=== PATIENT | female | born 1960 | race Caucasian/White ===

== ENCOUNTER 2019-01-20 07:20 | Emergency (ER) | payer OTHER ==
--- NOTE | 2019-01-20 07:44 | EDM.PDOC ---
ED HPI GENERAL MEDICAL PROBLEM - General Chief Complaint: ENT Problem Stated Complaint: sore throat, chills Time Seen by Provider: 01/20/19 07:40 Source of Information: Reports: Patient, Old Records ([facility] chart/EMR), Other ([place] EMR) History Limitations: Reports: No Limitations - History of Present Illness INITIAL COMMENTS - FREE TEXT/NARRATIVE: She drove herself to the emergency room via private automobile for evaluation of 02/27 sharp, burning sore throat, which started about 3 days ago. She has had a previous history of recurrent tonsillitis with status post tonsillectomy as below. No known exposure to infection, including strep throat, mono, etc. Her seasonal allergies have also been under somewhat poor control recently secondary to current harvesting. Possible fever and chills yesterday with Tylenol taken at that time, however temperature not measured. No antipyretic medication during the last 6 hours. No recent history of abdominal pain, heartburn, nausea, diarrhea, melena, gross hematochezia, or any food intolerance , including fatty foods, etc.. She denies any gross hematuria, colic, or other UTI symptoms. The patient also denies any recent cough, wheezing, dyspnea, etc.. She has been gargling with saltwater. Onset: Gradual Onset Date: 01/17/19 Duration: Constant, Getting Worse Location: Reports: Other (Sore throat as above). Denies: Head, Face, Neck, Chest, Abdomen, Upper Extremity, Left, Upper Extremity, Right, Radiates to Quality: Reports: Burning, Same as Previous Episode, Sharp Severity: Severe Improves with: Reports: None Worsens with: Reports: None Context: Reports: Other (As above). Denies: Sick Contact, Trauma Associated Symptoms: Reports: Fever/Chills. Denies: Confusion, Chest Pain, Cough, Malaise, Nausea/Vomiting, Rash, Shortness of Breath, Weakness Treatments BLOCK INSPECTOR: Reports: Acetaminophen Throat Pain Score (Numeric/FACES): 10 - Related Data Allergies Allergy/AdvReac Type Severity Reaction Status Date / Time azithromycin AdvReac Stomach Verified 01/20/19 07:20 Upset Home Meds: Home Meds Fish Oil/[place]-3 Fatty Acids [Fish Oil 1,000 MG] 1 each PO DAILY 01/20/19 [ History] L.acidoph,Paracasei, B.lactis [Probiotic] 1 each PO DAILY 01/20/19 [History] Vit A/Vit C/Vit E/Zinc/Copper [Preservision] 1 each PO DAILY 01/20/19 [History] Past Medical History HEENT History: Reports: Allergic Rhinitis, Cataract, Impaired Vision, Otitis Media, Other (See Below). Denies: Glaucoma, Hard of Hearing, Macular Degeneration, Retinal Detachment Other HEENT History: Getting cataracts. Patient wears reading glasses. Allergic rhinitis especially to pollens. Recurrent titis media requiring surgery as below. Cardiovascular History: Reports: Other (See Below). Denies: Afib, Aneurysm, Arrhythmia, Blood Clots/VTE/DVT, CAD, Heart Murmur, High Cholesterol, Hypertension, [place], Syncope Other Cardiovascular History: Occasionally elevated blood pressures. Respiratory History: Reports: Other (See Below). Denies: Asthma, Bronchitis, Recurrent, COPD, Intubation, Previous, PE, Pneumothorax, Sleep Apnea, TB Other Respiratory History: Multiple benign pulmonary granulomas/nodules by CT scan of the chest initially diagnosed in April 2016 as below. Gastrointestinal History: Reports: GERD. Denies: Celiac Disease, Cholelithiasis , Colon Polyp, Diverticulosis, GI Bleed, Hepatitis, Hiatal Hernia, Inflammatory Bowel Disease, Irritable Bowel Syndrome, Jaundice, Pancreatitis, PUD Genitourinary History: Reports: Renal Calculus, Other (See Below). Denies: Acute Renal Failure, Chronic Renal Insuffiency, Retention, Urinary, STD, Urinary Incontinence, UTI, Recurrent Other Genitourinary History: Possible right-sided urolithiasis on 02/14/13 with spontaneous passage. FAMILY ENGAGEMENT SPECIALIST History: Reports: . Denies: Dysfunctional Uterine Bleeding, Endometriosis, Fibroids, Spontaneous LMP (Approximate): Other (See Below) Other FAMILY ENGAGEMENT SPECIALIST History: Positive age 49. Previous left ovarian cyst on 02/17/13. Musculoskeletal History: Reports: None. Denies: Amputation, Arthritis, Back Pain, Chronic, Gout, Neck Pain, Chronic, Osteoarthritis, RA, SLE Neurological History: Reports: Headaches, Chronic, Migraines, Other (See Below) . Denies: Cerebral Aneurysms, Concussion, Head Trauma, MS, Neuropathy, Peripheral, Parkinson's, Seizure, TIA, Vertigo Other Neuro History: Previous migraine headaches with menses. Psychiatric History: Reports: None. Denies: Abuse, Victim of, ADD, ADHD, Addiction, Anxiety, Depression, Psych Hospitalization(s), PTSD, Suicide Attempt , Suicidal Ideation Endocrine/Metabolic History: Reports: None. Denies: Diabetes, Gestational, Diabetes, Type I, Diabetes, Type II, Diabetes Mellitus, Type 3c, Hypothyroidism , IDDM Hematologic History: Reports: None. Denies: Anemia, Blood Transfusion(s), Iron Deficiency Immunologic History: Reports: None. Denies: AIDS, HIV, SLE Oncologic (Cancer) History: Reports: Basal Cell Carcinoma, Squamous Cell Carcinoma, Other (See Below). Denies: Cervix, Colon, Hodgkin's Lymphoma, Leukemia, Malignant Melanoma, Non-Hodgkin's Lymphoma, Ovarian, Uterine Other Oncologic History: Squamous cell carcinoma and multiple basal cell carcinomas with excisions as below. Dermatologic History: Reports: Other (See Below). Denies: Eczema, Psoriasis Other Dermatologic History: Dry skin - Infectious Disease History Infectious Disease History: Reports: C-Difficile, Chicken Pox, Mumps. Denies: Measles, Meningitis, Mononucleosis, MRSA, Pertussis (Whooping Cough), Rheumatic Fever, Rubella, Scarlet Fever, Shingles, TB, VRE - Past Surgical History Head Surgeries/Procedures: Reports: None HEENT Surgical History: Reports: Adenoidectomy, Myringotomy w Tube(s), Tonsillectomy, Other (See Below). Denies: Cataract Surgery, Eye Surgery, Laser Surgery, LASIK, Naso-Sinus Surgery, Oral Surgery Other HEENT Surgeries/Procedures: Tonsillectomy and adenoidectomy at age 6. Bilateral PE tubes at age as a child. Cardiovascular Surgical History: Reports: None. Denies: Varicose, Vascular Surgery Respiratory Surgical History: Reports: None. Denies: Thoracentesis GI Surgical History: Reports: Colonoscopy, EGD, Other (See Below). Denies: Appendectomy, Cholecystectomy, Hernia, Abdominal, Hernia, Inguinal, Hernia Repair/Other, Polypectomy Other GI Surgeries/Procedures: Normal EGD and colonoscopy on 10/13/10. Female Surgical History: Reports: Breast Biopsy, Other (See Below). Denies: Cystoscopy, D&C, Hysterectomy, Tubal Ligation Other Female Surgeries/Procedures: Right breast biopsy for benign disease in her 30s. Endocrine Surgical History: Reports: None. Denies: Thyroid Biopsy Neurological Surgical History: Reports: None. Denies: C-Spine, Discectomy, Laminectomy, Lumbar Spine, Sacral Spine, Spinal Fusion, Thoracic Spine, Vertebroplasty Musculoskeletal Surgical History: Reports: None. Denies: Arthroscopic Procedure , Carpal Tunnel, Ganglion Cyst, Joint Replacement, ORIF, Shoulder Surgery Oncologic Surgical History: Reports: Other (See Below) Other Oncologic Surgeries/Procedures: Skin excisions as below Dermatological Surgical History: Reports: Skin Biopsy, Other (See Below) Other Dermatological Surgeries/Procedures: Skin excisions for basal cell carcinoma of the right lateral nose with additional skin flap on 2014, left forehead/ Mohs procedure on 2015, and left sternal region in 2013. Excision of squamous cell carcinoma from the right breast on 2014. Additional multiple skin excisions for benign disease usually on a every 6 month basis. - Past Imaging History Past Imaging History: Reports: CAT Scan (CT heart scan/calcium score on . CT of the chest on 05/03/16 and 09/14/16.), Mammogram (Last mammogram on 03/28), Ultrasound (Abdominal and pelvic ultrasound on 02/17/13.) Social & Family History - Family History Cardiac: Reports: Bypass, CAD, High Cholesterol, [place], Stent, Other (See Below). Denies: Afib, Arrhythmia, Blood Clots/VTE/DVT, Hypertension, Pacemaker, PVD/COD , Syncope Other Cardiac Family History: Father history of PTCA/stent 1 and WY in his 60s with subsequent CABG and stents in his 70s. Paternal uncles 3 with history of W[place] in their 70s. Father with hyperlipidemia. Neurological: Reports: CVA, Migraines, Other (See Below). Denies: Alzheimers Disease, Cerebral Aneurysms, Dementia, MS, Parkinson's, Seizure, TIA Other Neurological Family History: Paternal grandmother with CVA in her 70s. Mother and daughter with migraine headaches. - Tobacco Use Smoking Status *Q: Former Smoker Tobacco Use Within Last Twelve Months: No Years of Tobacco use: 8 Packs/Tins Daily: 0.1 Packs/Tins Daily Comment: Usually on weekends between ages 16 and 24. Used Tobacco, but Quit: Yes Smoking Cessation Information Provided To Patient: No Second Hand Smoke Exposure: No Second Hand Smoke Education Provided: No - Caffeine Use Caffeine Use: Reports: None. Denies: Coffee, Energy Drinks, Soda, Tea - Alcohol Use Alcohol Use History: Yes Days Per Week of Alcohol Use: 0 Number of Drinks Per Day: 1 Number of Drinks Per Day Comment: Usually very occasional beer. DWI at Age 26 with no history of alcohol abuse, treatment, etc. Total Drinks Per Week: 0 Alcohol Use in Last Twelve Months: Yes - Recreational Drug Use Recreational Drug Use: No Drug Use in Last 12 Months: No Recreational Drug Type: Denies: Amphetamines (Speed), Cocaine, Heroin, LSD (Acid ), Marijuana/Hashish, Methamphetamine, Morphine, Oxycodone - Living Situation & Occupation Living situation: Reports: (1979, 1 child), ( in 1981) , Alone Occupation: Employed ([employer] in [place]-[employer]) ED ROS ENT - Review of Systems Review Of Systems: ROS reveals no pertinent complaints other than HPI. ED EXAM, ENT - Physical Exam Exam: See Below Exam Limited By: No Limitations General Appearance: Alert, WD/WN, No Apparent Distress Eye Exam: Bilateral Eye: EOMI, Normal Inspection (Reading glasses. No nystagmus) , PERRL Ears: Normal External Exam, Normal Canal, Hearing Grossly Normal, Normal TMs Nose: Normal Mucousa, No Blood, Clear Rhinorrhea (Mild bilateral) Mouth/Throat: Normal Gums, Normal Lips, Normal Teeth, Hoarse Voice, Pharyngeal Erythema (Trace to +1), Throat Pain. No: Dry Mucous Membrane, Lip Ulcers, Oral Ulcers, Perioral Cyanosis, Throat Swelling, Tonsillar Erythema (Tonsils are absent), Tonsillar Exudates, Uvular Deviation Head: Atraumatic, Normocephalic. No: Facial Tenderness, Sinus Tenderness Neck: Normal Inspection, Supple, Non-Tender, Full Range of Motion. No: Lymphadenopathy (L), Lymphadenopathy (R), Thyromegaly Respiratory/Chest: No Respiratory Distress, Lungs Clear, Normal Breath Sounds, No Accessory Muscle Use, Chest Non-Tender. No: Pleural Rub, Retractions Cardiovascular: Normal Peripheral Pulses, Regular Rate, Rhythm, No Edema, No Gallop, No JVD, No Murmur, No Rub. No: Gallop/S3, Gallop/S4, Friction Rub GI/Abdominal: Normal Bowel Sounds, Soft, Non-Tender, No Organomegaly, No Distention, No Abnormal Bruit, No Mass. No: Guarding (Female) Exam: Deferred Rectal (Female) Exam: Deferred Back: Normal Inspection, Full Range of Motion. No: CVA Tenderness (L), CVA Tenderness (R), Muscle Spasm Extremities: Normal Inspection, Normal Range of Motion, Non-Tender, No Pedal Edema, Normal Capillary Refill. No: Teodoro's Sign Neurological: Alert, Oriented, CN II-XII Intact, Normal Cognition, Normal Gait, No Motor/Sensory Deficits Psychiatric: Normal Affect, Normal Mood Skin: Warm, Dry, Intact, Normal Color, No Rash. No: Diaphoretic, Wound/Incision Lymphatic: No Adenopathy Course - Vital Signs Last Recorded V/S: Last Vital Signs Temp 36.5 C 01/20/19 07:23 Pulse 80 01/20/19 07:35 Resp 18 01/20/19 07:23 BP 139/77 01/20/19 07:35 Pulse Ox 99 01/20/19 07:23 Vital Signs - 24 hr 01/20/19 01/20/19 07:23 07:35 Temperature [ 36.5 C Oral] Pulse, 71 80 Peripheral [ Pulse Oximetry] Respiratory 18 Rate Blood Pressure 153/76 H 139/77 [Right Upper Arm] O2 Sat by Pulse 99 Oximetry - Orders/Labs/Meds Orders: Active Orders 24 hr Category Date Time Status CULTURE STREP A CONFIRMATION [] Stat Lab 01/20/19 07:46 Results STREP SCRN A RAPID W CULT CONF [] Stat Lab 01/20/19 07:46 Results Obtain Past Medical Record [OM.PC] Routine Oth 01/20/19 07:46 Active Labs: Microbiology 01/20/19 07:46 Group A Streptococcus Rapid Screen - Final Throat NEGATIVE STREP A SCREEN REFERENCE RANGE: NEGATIVE Meds: Medications Discontinued Medications Generic Name Dose Route Start Last Admin Trade Name Freq PRN Reason Stop Dose Admin Methylprednisolone Acetate 80 mg 01/20/19 08:16 01/20/19 08:30 Depo-Medrol IM 01/20/19 08:17 80 mg ONETIME ONE Administration - Radiology Interpretation Free Text/Narrative:: None Departure - Departure Time of Disposition: 08:45 Disposition: Home, Self-Care 01 Condition: Good Clinical Impression: Pharyngitis Qualifiers: Pharyngitis/tonsillitis etiology: other specified organisms Qualified Code(s): J02.8 - Acute pharyngitis due to other specified organisms Allergic rhinitis Qualifiers: Allergic rhinitis trigger: pollen Allergic rhinitis seasonality: seasonal Qualified Code(s): J30.1 - Allergic rhinitis due to pollen - Discharge Information *PRESCRIPTION DRUG MONITORING PROGRAM REVIEWED*: Not Applicable *COPY OF PRESCRIPTION DRUG MONITORING REPORT IN PATIENT SUSY: Not Applicable Instructions: Pharyngitis, [id number], Methylprednisolone Suspension for Injection Referrals: Berna Olivares PA-C [Primary Care Provider] - Forms: ED Department Discharge Additional Instructions: 1. Follow up with your regular provider in 10-14 days as needed, if symptoms persist. Bring these discharge instructions with you to that visit.. 2. Tylenol 650 mg by mouth every 4 hours and/or OTC ibuprofen 2-3 tabs by mouth every 6 hours with food as directed./needed. You may stagger these medications for 48-72 hours only, which essentially means that you are receiving a pain medication about every 2 hours. 3. Listerine gargles four times per day, after meals and at bedtime, with additional Chloroseptic lozenges or spray as needed for 10 days and/or until symptoms resolve. 4. May use additional allergy medications as needed per labeled instructions 5. Keep your follow-up appointments for scheduled yearly physical exam, colonoscopy, etc.. Recommend scheduling mammogram at that time. In addition, discuss possible repeat pelvic ultrasound secondary to distant large left ovarian cyst in 2012 with recommended follow-up at that time. 6. Continue to observe your blood pressures closely through your regular provider 7. Immediately after this visit verify that your cellular telephone's voicemail has been activated and is empty. Also verify that your home telephone 's answering machine is operating properly and has space to receive messages. Note that it is sometimes necessary for us to be able to contact you at a later date to discuss your medical care. 8. Please remember that we are ALWAYS here for you and want to answer any questions you may have. Feel free to call the hospital any time and we call you back [facility]. - Problem List & Annotations (1) Pharyngitis SNOMED Code(s): 673199115 Code(s): J02.9 - ACUTE PHARYNGITIS, UNSPECIFIED Status: Acute Priority: High Current Visit: Yes Onset Date: ~12/20/18 Annotation/Comment:: Probable viral pharyngitis. Symptomatic treatment as per discharge instructions. No antibiotic therapy indicated at this time. She does not wish to have a work excuse. Qualifiers: Pharyngitis/tonsillitis etiology: other specified organisms Qualified Code( s): J02.8 - Acute pharyngitis due to other specified organisms (2) Allergic rhinitis SNOMED Code(s): 85293346 Code(s): J30.9 - ALLERGIC RHINITIS, UNSPECIFIED Status: Chronic Priority : High Current Visit: Yes Annotation/Comment:: Exacerbation of her allergic rhinitis at this time as above. Various therapeutic options were discussed. IM Depo-Medrol given with OTC indications as needed as per discharge instructions. Qualifiers: Allergic rhinitis trigger: pollen Allergic rhinitis seasonality: seasonal Qualified Code(s): J30.1 - Allergic rhinitis due to pollen - Problem List Review Problem List Initiated/Reviewed/Updated: Yes - My Orders Last 24 Hours: My Active Orders 01/20/19 07:46 CULTURE STREP A CONFIRMATION [RM] Stat STREP SCRN A RAPID W CULT CONF [RM] Stat Obtain Past Medical Record [OM.PC] Routine - Assessment/Plan Last 24 Hours: My Active Orders 01/20/19 07:46 CULTURE STREP A CONFIRMATION [RM] Stat STREP SCRN A RAPID W CULT CONF [RM] Stat Obtain Past Medical Record [OM.PC] Routine Assessment:: As above Plan: As above. Extensive precautions were given to the patient, who is in agreement with the treatment plan. See Patient Instructions for further treatment and plan.
[2019-01-20] MEDS ORDERED: methylPREDNISolone Acetate 80 MG/ML SDV IM ONE (08:16)
== END 2019-01-20 08:40 | disposition home or self-care (01) ==
LOC: LL.ED 07:20
DX: J02.8 Acute pharyngitis due to other specified organisms (principal); J30.1 Allergic rhinitis due to pollen; Z88.1 Allergy status to other antibiotic agents; Z87.442 Personal history of urinary calculi; Z85.828 Personal history of other malignant neoplasm of skin; Z87.891 Personal history of nicotine dependence
CPT/HCPCS: 87081; 87430; 96372; 99283; J1040

== ENCOUNTER 2019-02-13 09:40 | Day surgery (SDC) | payer OTHER ==
[~2019-02-13 09:40] MED LIST: Midazolam 1 MG/ML 2 ML SDV ONE; Propofol 200 MG/20 ML SDV ONE
[2019-02-13] MEDS ORDERED: Sodium Chloride 0.9% 10 ML Syringe FLUSH PRN (09:45)
[2019-02-13] MEDS: Lactated Ringers 1,000 ML IV SCH (10:36)
--- NOTE | 2019-02-13 10:49 | PCM.PN ---
- General Info Date of Service: 02/13/19 - Review of Systems Systems Review Comment:: 58-year-old femalereferred by Berna Olivares for colonoscopy. She has a history of symptoms of alternating diarrhea. She also has symptoms of pressure in the rectum after a bowel movement. She is medically stable to proceed Her recent history and physical is reviewed and no significant changes are noted. I have discussed the proposed colonoscopy with the patient. Risks such as but not limited to bleeding and GI injury reviewed. She agrees to proceed. - Patient Data Vitals - Most Recent: Last Vital Signs Temp 99.5 F 02/13/19 09:50 Pulse 108 H 02/13/19 09:50 Resp 20 02/13/19 09:50 BP 152/93 H 02/13/19 09:50 Pulse Ox 100 02/13/19 09:50 Weight - Most Recent: 52.163 kg Med Orders - Current: Current Medications Lactated Ringer's (Ringers, Lactated) 1,000 mls @ 125 mls/hr IV ASDIRECTED ANDREAS Last Admin: 02/13/19 10:36 Dose: 125 mls/hr Sodium Chloride (Saline Flush) 10 ml FLUSH ASDIRECTED PRN PRN Reason: Keep Vein Open Discontinued Medications Midazolam HCl (Versed 1 Mg/Ml) Confirm Administered Dose 2 mg .ROUTE .STK-MED ONE Stop: 02/13/19 08:30 Propofol (Diprivan 20 Ml) Confirm Administered Dose 200 mg .ROUTE .STK-MED ONE Stop: 02/13/19 08:30 - Problem List Review Problem List Initiated/Reviewed/Updated: Yes - My Orders Last 24 Hours: My Active Orders 02/13/19 09:45 Patient Status [ADT] Routine Peripheral IV Care [RC] . DIRECTED Verify Patient Consent Obtain [RC] ASDIRECTED Lactated Ringers [Ringers, Lactated] 1,000 ml IV ASDIRECTED Sodium Chloride 0.9% [Saline Flush] 10 ml FLUSH ASDIRECTED PRN Peripheral IV Insertion Adult [OM.PC] Routine - Assessment Assessment:: Colon cancer screening with change in bowel habits - Plan Plan:: colonoscopy
[2019-02-13] MEDS ORDERED: Propofol 200 MG/20 ML SDV ONE (10:54)
[2019-02-13] MEDS ORDERED: Midazolam 1 MG/ML 2 ML SDV ONE (10:54)
--- NOTE | 2019-02-13 11:36 | PCM.OPNOTE ---
- General Post-Op/Procedure Note Date of Surgery/Procedure: 02/13/19 Operative Procedure(s): Colonoscopy with Biopsy Findings: Normal appearing colon and terminal ileum Pre Op Diagnosis: Colon cancer screening Post-Op Diagnosis: Normal colon Anesthesia Technique: MAC Primary Surgeon: Joel Gordillo Pathology: biopsies of ileum and colon Output, Urine Amount: 0 EBL in mLs: 0 Complications: None Condition: Good
--- NOTE | 2019-02-13 16:55 | OR ---
Date of Procedure: 02/13/2019 PREOPERATIVE DIAGNOSIS: Colon cancer screening. POSTOPERATIVE DIAGNOSIS: Normal colon. OPERATION PERFORMED: Colonoscopy with biopsy. INDICATIONS FOR SURGERY: This 58-year-old female comes today for screening colonoscopy. She does have a longstanding history of alternating diarrhea and constipation but without recent change in this. She also has been having symptoms of a pressure feeling in the rectal area. FINDINGS: The patient's colon appeared normal. No visible signs of inflammation or polyps were seen. No abnormal masses were noted in the rectal area, and the terminal ileum appeared normal. DESCRIPTION OF PROCEDURE: The patient was taken to the operating room. She was given intravenous sedation, and with her in the left lateral decubitus position, digital rectal exam was performed. No rectal masses were noted. The Olympus colonoscope was inserted into the rectum. Retroflexed examination of the rectal canal was performed. The scope was then carefully advanced under direct visualization through the entire length of the colon until the cecum was reached. Cecal acquisition was confirmed by noting normal internal cecal anatomy including the appendiceal orifice and ileocecal valve. The light was also noted to transilluminate the abdominal wall in the right lower quadrant. The ileocecal valve was cannulated and the terminal ileum examined. Random biopsies of the terminal ileum were taken because of the patient's symptoms. The scope was then slowly withdrawn sequentially re-examining the colonic segments until the entire colon and rectum had been fully examined. Random biopsies were taken of the left and right side of her colon also because of her GI symptoms. After the colon had been completely examined and with no sign of any complication, the scope was removed and the patient was taken from the operating room in satisfactory condition. ESTIMATED BLOOD LOSS: 3 mL. COMPLICATIONS: None. PROGNOSIS: Good. ADRIA Gordillo MD /[id number]
== END 2019-02-13 12:19 | disposition home or self-care (01) ==
LOC: LL.SDS 09:40
PROVIDERS: ATTEND Surgery
DX: K59.00 Constipation, unspecified (principal); R19.7 Diarrhea, unspecified; K62.89 Other specified diseases of anus and rectum; Z88.1 Allergy status to other antibiotic agents; Z87.891 Personal history of nicotine dependence; Z79.899 Other long term (current) drug therapy
CPT/HCPCS: J2250; J2704; J7120